=== PATIENT | male | born 1960 | race African-American/Black ===

== ENCOUNTER 2017-11-19 05:38 | Emergency (ER) | payer OTHER ==
[~2017-11-19] VITALS: Ht 185.4 cm; Wt 103.0 kg
[~2017-11-19 05:38] MED LIST: QUET200T PO; RISP2 PO; TRAZ-212 PO; VICODIN; [UNRECOGNIZED DRUG - OTHER]
[2017-11-19] MEDS ORDERED: SODIUM CHLORIDE 0.9% 1,000 ML IV ONE (07:02)
[2017-11-19] MEDS ORDERED: TETANUS, DIPHTHERIA, PERTUSSIS VAC/PF 0.5ML (>7YR OLD) IM ONE (07:15)
[2017-11-19 07:27] LABS: BASOPHILS % 0.3 % (0.0-2.0); EOSINOPHILS % 0.1 % (0.0-5.0); HEMATOCRIT. 48.4 % (42.0-52.0); HEMOGLOBIN. 16.3 g/dL (14.0-18.0); LYMPHOCYTES % 32.1 % (20.0-50.0); MEAN CORPUSCULAR HEMOGLOBIN 28.6 pg (28.0-32.0); MEAN PLATELET VOLUME 9.9 fl (7.4-10.4); MONOCYTES % 6.5 % (2.0-8.0); PLATELET 107 x1000/uL (130-400); RED CELL DISTRIBUTION WIDTH 16.6 % (11.6-14.6)
[2017-11-19 07:31] LABS: CHLORIDE 96 mEq/L (98-107)
[2017-11-19 07:35] LABS: ETHANOL BLOOD < 10 mg/dL
[2017-11-19 09:37] LABS: CLARITY URINE CLEAR (CLEAR); COLOR URINE DARK YELLOW (YELLOW); KETONES URINE 1+ (NEGATIVE); LEUKOCYTE ESTERASE URINE NEGATIVE (NEGATIVE); NITRITE URINE NEGATIVE (NEGATIVE); OCCULT BLOOD URINE 1+ (NEGATIVE); PROTEIN URINE 2+ (NEGATIVE)
[2017-11-19 10:05] LABS: *AMPHETAMINES SCREEN URINE NEGATIVE (NEGATIVE); CANNABINOID URINE SCREEN PRESUMTIVE POSITIVE (NEGATIVE); OPIATES URINE SCREEN NEGATIVE (NEGATIVE); PHENCYCLIDINE URINE SCREEN NEGATIVE (NEGATIVE)
[2017-11-19 10:06] LABS: *BARBITURATES SCREEN URINE NEGATIVE (NEGATIVE)
[2017-11-19 10:08] LABS: *BENZODIAZEPINES SCREEN URINE NEGATIVE (NEGATIVE)
[2017-11-19 10:10] LABS: METHADONE URINE SCREEN NEGATIVE (NEGATIVE)
[2017-11-19 10:12] LABS: *COCAINE SCREEN URINE NEGATIVE (NEGATIVE)
[2017-11-19 10:46] VITALS: BP 136/93
== END 2017-11-19 10:48 | disposition home or self-care (01) ==
LOC: ER 05:38
DX: S00.212A Abrasion of left eyelid and periocular area, initial encounter (principal); R41.82 Altered mental status, unspecified; F12.10 Cannabis abuse, uncomplicated; G93.40 Encephalopathy, unspecified; F17.200 Nicotine dependence, unspecified, uncomplicated; F10.20 Alcohol dependence, uncomplicated; X58.XXXA Exposure to other specified factors, initial encounter; Y93.89 Activity, other specified; Y92.89 Other specified places as the place of occurrence of the external cause; Y99.8 Other external cause status; Z88.6 Allergy status to analgesic agent; Y90.0 Blood alcohol level of less than 20 mg/100 ml
CPT/HCPCS: 36415; 70450; 71045; 80053; 80305; 80307; 80329; 81003; 82962; 83735; 84484; 85025; 90471; 90715; 93005; 96360; 96361; 99285; G0482; J7030; Z7610

== ENCOUNTER 2017-12-05 13:20 | Inpatient (IN) | payer MEDICAID, OTHER ==
[~2017-12-05] VITALS: Ht 185.4 cm; Wt 103.0 kg
[2017-12-05 15:26] LABS: HEMATOCRIT. 43.2 % (42.0-52.0); HEMOGLOBIN. 14.6 g/dL (14.0-18.0); MEAN CORPUSCULAR VOLUME 85.8 fL (80.0-94.0); MEAN PLATELET VOLUME 8.8 fl (7.4-10.4); PLATELET 183 x1000/uL (130-400); RED BLOOD CELL COUNT 5.03 mill/uL (4.7-6.1); RED CELL DISTRIBUTION WIDTH 17.1 % (11.6-14.6)
[2017-12-05 15:29] LABS: CHLORIDE 92 mEq/L (98-107)
[2017-12-05] MEDS ORDERED: HYDRALAZINE 20MG/ML VIAL IV ONE (15:45)
[2017-12-05 16:12] LABS: PLATELET ESTIMATE NORMAL
[2017-12-05 18:22] VITALS: BP 164/96
[2017-12-05] MEDS ORDERED: IPRATROPIUM/ALBUTEROL 0.5-3(2.5)MG/3ML NEB INH PRN (18:30)
[2017-12-05] MEDS ORDERED: CLONIDINE 0.1MG TABLET PO PRN (18:30)
[2017-12-05] MEDS ORDERED: MAGNESIUM/ALUMINUM HYDROXIDE/SIMETHICONE 30ML UDC PO PRN (18:30)
[2017-12-05] MEDS ORDERED: ACETAMINOPHEN 650MG SUPP PR PRN (18:30)
[2017-12-05] MEDS ORDERED: ONDANSETRON HCL 4MG/2ML INJ IV PRN (18:30)
[2017-12-05 18:41] VITALS: BP 164/96
[2017-12-05 20:00] VITALS: BP 148/98
[2017-12-05] MEDS ORDERED: CHLORDIAZEPOXIDE 25MG CAPSULE PO PRN (20:15)
[2017-12-05] MEDS ORDERED: SODIUM CHLORIDE 0.9% 250 ML IV ONE (20:15)
[2017-12-05 20:17] LABS: CLARITY URINE CLEAR (CLEAR); COLOR URINE YELLOW (YELLOW); KETONES URINE NEGATIVE (NEGATIVE); LEUKOCYTE ESTERASE URINE NEGATIVE (NEGATIVE); NITRITE URINE NEGATIVE (NEGATIVE); OCCULT BLOOD URINE NEGATIVE (NEGATIVE); PH URINE 6.5 (4.5-8.0); PROTEIN URINE NEGATIVE (NEGATIVE); SPECIFIC GRAVITY URINE 1.004 (1.005-1.030)
[2017-12-05 20:29] LABS: *AMPHETAMINES SCREEN URINE NEGATIVE (NEGATIVE); *BARBITURATES SCREEN URINE NEGATIVE (NEGATIVE); *BENZODIAZEPINES SCREEN URINE NEGATIVE (NEGATIVE); *COCAINE SCREEN URINE NEGATIVE (NEGATIVE); CANNABINOID URINE SCREEN NEGATIVE (NEGATIVE); METHADONE URINE SCREEN NEGATIVE (NEGATIVE); OPIATES URINE SCREEN NEGATIVE (NEGATIVE); PHENCYCLIDINE URINE SCREEN NEGATIVE (NEGATIVE)
[2017-12-05] MEDS ORDERED: LORAZEPAM 2MG/ML CPJ IV PRN (20:30)
[2017-12-05] MEDS ORDERED: NA PHOS,M-B/NA PHOS,DI-BA ENEMA 118ML PR PRN (21:00)
[2017-12-05] MEDS: PANTOPRAZOLE SODIUM 40 MG/VIAL IV SCH (21:00)
[2017-12-05] MEDS: MVI, ADULT NO.1 10 ML, THIAMINE HCL 100 MG, FOLIC ACID 1 MG in SODIUM CHLORIDE 0.9% 1,0... IV SCH ×4 (21:00)
[2017-12-05] MEDS: SUCRALFATE 1 G/10 ML UDC PO SCH (21:00)
[2017-12-05] MEDS: NICOTINE 14MG PATCH TD SCH (21:27)
[2017-12-05] MEDS: METOPROLOL TARTRATE 25MG TABLET PO SCH (21:28)
[2017-12-05 22:00] VITALS: BP 134/88
[2017-12-05] MEDS: HYDROCODONE/ACETAMINOPHEN 5/325MG TABLET PO PRN (22:05)
[2017-12-05] MEDS: DIPHENHYDRAMINE 50MG/ML VIAL IV PRN (22:06)
[2017-12-06] VITALS (8 sets, daily range): BP systolic 125–143; BP diastolic 76–97
[2017-12-06 01:00] LABS: D-DIMER 0.56 mg/L FEU (<0.50); INR 1.2
[2017-12-06 01:03] LABS: AMMONIA 56 uMol/L (<32)
[2017-12-06 01:06] LABS: ETHANOL BLOOD < 10 mg/dL
[2017-12-06 01:10] LABS: CREATINE KINASE 363 IU/L (39-308)
[2017-12-06 01:11] LABS: CREATINE KINASE MB FRACTION 3.1 ng/mL (0.5-3.6)
[2017-12-06] MEDS: HYDROCODONE/ACETAMINOPHEN 5/325MG TABLET PO PRN ×4 (03:46→17:57)
[2017-12-06] MEDS: SUCRALFATE 1 G/10 ML UDC PO SCH ×4 (06:36→20:58)
[2017-12-06 06:59] LABS: HEMATOCRIT. 39.9 % (42.0-52.0); HEMOGLOBIN. 13.3 g/dL (14.0-18.0); MEAN CORPUSCULAR HEMOGLOBIN 28.7 pg (28.0-32.0); MEAN CORPUSCULAR VOLUME 86.2 fL (80.0-94.0); PLATELET 155 x1000/uL (130-400); RED BLOOD CELL COUNT 4.63 mill/uL (4.7-6.1); RED CELL DISTRIBUTION WIDTH 17.1 % (11.6-14.6)
[2017-12-06 07:14] LABS: HEPATITIS B SURFACE ANTIGEN NEGATIVE
[2017-12-06 07:23] LABS: CHLORIDE 98 mEq/L (98-107)
[2017-12-06 07:38] LABS: CREATINE KINASE 286 IU/L (39-308); CREATINE KINASE MB FRACTION 2.5 ng/mL (0.5-3.6); HDL CHOLESTEROL 68 mg/dL (40-59); LDL CHOLESTEROL 76 mg/dL (5-100); T4 FREE 1.17 ng/dL (0.76-1.46)
[2017-12-06 07:42] LABS: HEPATITIS B CORE AB IGM NEGATIVE
[2017-12-06 07:44] LABS: HEPATITIS A AB IGM NEGATIVE (NEGATIVE)
[2017-12-06] MEDS: ASPIRIN 81MG EC TABLET PO SCH (09:00)
[2017-12-06] MEDS: PANTOPRAZOLE SODIUM 40 MG/VIAL IV SCH (09:00)
[2017-12-06] MEDS: NICOTINE 14MG PATCH TD SCH (09:00)
[2017-12-06] MEDS: METOPROLOL TARTRATE 25MG TABLET PO SCH ×2 (09:00→21:00)
[2017-12-06] MEDS ORDERED: AMLODIPINE 5MG TABLET PO SCH (12:45)
[2017-12-06] MEDS ORDERED: REGADENOSON 0.4 MG/5 ML IV SCH (12:45)
[2017-12-06 12:56] LABS: BG BASE EXCESS -0.6 mmol/L (-2.0-2.0); BG CARBOXYHEMOGLOBIN 1.2 % (0.5-1.5); BG DEOXYHEMOGLOBIN 5.5 % (0.0-5.0); BG HCO3 ACT 23.1 mmol/L (22.0-26.0); BG METHEMOGLOBIN 0.3 % (0.0-1.5); BG OXYGEN SATURATION 94.4 % (92.0-98.5); BG PCO2 35.4 mmHg (35.0-45.0); BG PH 7.432 (7.350-7.450); BG PO2 72.1 mmHg (75.0-100.0); BG SAMPLE SITE RIGHT RADIAL; BG TOTAL HEMOGLOBIN 14.7 g/dL (12.0-18.0); BG VENT MODE ROOM AIR
[2017-12-06 14:41] LABS: PLATELET ESTIMATE NORMAL
[2017-12-06] MEDS ORDERED: IOHEXOL-350 100 ML BOTTLE ONE (16:10)
[2017-12-06] MEDS: NITROGLYCERIN OINT 1GM/INCH UDPKT TD SCH ×2 (17:56→21:25)
[2017-12-06] MEDS ORDERED: LACTULOSE 20G/30ML UDC PO PRN (20:00)
[2017-12-06] MEDS: MVI, ADULT NO.1 10 ML, THIAMINE HCL 100 MG, FOLIC ACID 1 MG in SODIUM CHLORIDE 0.9% 1,0... IV SCH ×4 (20:58)
[2017-12-06] MEDS: AMLODIPINE 5MG TABLET PO SCH (20:59)
[2017-12-06] MEDS: DIPHENHYDRAMINE 50MG/ML VIAL IV PRN (21:24)
[2017-12-06] MEDS: ACETAMINOPHEN 325MG TABLET PO PRN (21:46)
[2017-12-07 02:00] VITALS: BP 128/88
[2017-12-07 04:00] VITALS: BP 128/91
[2017-12-07] MEDS: NITROGLYCERIN OINT 1GM/INCH UDPKT TD SCH ×3 (05:24→20:45)
[2017-12-07 06:00] VITALS: BP 126/88
[2017-12-07 07:16] LABS: BASOPHILS % 0.6 % (0.0-2.0); EOSINOPHILS % 1.2 % (0.0-5.0); HEMATOCRIT. 41.2 % (42.0-52.0); HEMOGLOBIN. 13.8 g/dL (14.0-18.0); LYMPHOCYTES % 51.2 % (20.0-50.0); MEAN CORPUSCULAR HEMOGLOBIN 28.9 pg (28.0-32.0); MEAN CORPUSCULAR VOLUME 86.4 fL (80.0-94.0); MONOCYTES % 13.3 % (2.0-8.0); NEUTROPHILS % 33.7 % (40.0-76.0); PLATELET 150 x1000/uL (130-400); RED BLOOD CELL COUNT 4.76 mill/uL (4.7-6.1)
[2017-12-07 07:54] LABS: CHLORIDE 100 mEq/L (98-107)
[2017-12-07 08:00] VITALS: BP 131/88
[2017-12-07 08:27] LABS: AMMONIA 37 uMol/L (<32)
[2017-12-07] MEDS: NICOTINE 14MG PATCH TD SCH (08:34)
[2017-12-07] MEDS ORDERED: REGADENOSON 0.4 MG/5 ML IV ONE (09:16)
[2017-12-07] MEDS: FAMOTIDINE 20MG/2ML VIAL IV SCH ×2 (10:20→20:40)
[2017-12-07] MEDS: HYDROCODONE/ACETAMINOPHEN 5/325MG TABLET PO PRN ×3 (10:21→23:55)
[2017-12-07] MEDS: METOPROLOL TARTRATE 25MG TABLET PO SCH (10:23)
[2017-12-07] MEDS: AMLODIPINE 5MG TABLET PO SCH ×2 (10:24→20:40)
[2017-12-07] MEDS: SUCRALFATE 1 G/10 ML UDC PO SCH ×4 (10:24→20:45)
[2017-12-07] MEDS: ASPIRIN 81MG EC TABLET PO SCH (10:24)
[2017-12-07 12:00] VITALS: BP 130/89
[2017-12-07] MEDS ORDERED: AZITHROMYCIN 500 MG TABLET PO SCH (13:35)
[2017-12-07] MEDS ORDERED: FUROSEMIDE 40MG/4ML VIAL IVP NR ×2 (13:45)
[2017-12-07 16:00] VITALS: BP 111/80
[2017-12-07] MEDS: FUROSEMIDE 40MG/4ML VIAL IVP SCH (19:09)
[2017-12-07] MEDS: ZOLPIDEM TARTRATE 5MG TABLET PO PRN (20:40)
[2017-12-07] MEDS: CARVEDILOL 6.25 MG TABLET PO SCH (20:41)
[2017-12-07] MEDS ORDERED: CARVEDILOL 3.125 MG TABLET PO SCH (21:00)
[2017-12-07] MEDS ORDERED: LEVOFLOXACIN 500MG TABLET PO SCH (21:00)
[2017-12-07] MEDS ORDERED: FUROSEMIDE 40MG TABLET PO SCH (21:00)
[2017-12-08] MEDS: HYDROCODONE/ACETAMINOPHEN 5/325MG TABLET PO PRN ×3 (06:15→21:24)
[2017-12-08] MEDS: SUCRALFATE 1 G/10 ML UDC PO SCH ×4 (06:21→21:23)
[2017-12-08] MEDS: NITROGLYCERIN OINT 1GM/INCH UDPKT TD SCH ×3 (06:21→21:23)
[2017-12-08] MEDS: FUROSEMIDE 40MG/4ML VIAL IVP SCH ×2 (06:21→17:10)
[2017-12-08 07:32] LABS: BASOPHILS % 0.4 % (0.0-2.0); EOSINOPHILS % 1.8 % (0.0-5.0); HEMATOCRIT. 42.7 % (42.0-52.0); HEMOGLOBIN. 14.1 g/dL (14.0-18.0); LYMPHOCYTES % 45.9 % (20.0-50.0); MEAN CORPUSCULAR HEMOGLOBIN 28.4 pg (28.0-32.0); MEAN CORPUSCULAR VOLUME 86.1 fL (80.0-94.0); MONOCYTES % 12.8 % (2.0-8.0); NEUTROPHILS % 39.1 % (40.0-76.0); PLATELET 159 x1000/uL (130-400); RED BLOOD CELL COUNT 4.95 mill/uL (4.7-6.1); RED CELL DISTRIBUTION WIDTH 16.7 % (11.6-14.6)
[2017-12-08 07:52] LABS: CHLORIDE 94 mEq/L (98-107)
[2017-12-08] MEDS: ACETAMINOPHEN 325MG TABLET PO PRN (09:33)
[2017-12-08] MEDS: AMLODIPINE 5MG TABLET PO SCH ×2 (09:43→21:24)
[2017-12-08] MEDS: ASPIRIN 81MG EC TABLET PO SCH (09:43)
[2017-12-08] MEDS: LISINOPRIL 10MG TABLET PO SCH (09:44)
[2017-12-08] MEDS: FOLIC ACID/VITAMIN B COMP W-C TABLET PO SCH (09:44)
[2017-12-08] MEDS: CARVEDILOL 6.25 MG TABLET PO SCH ×2 (09:44→21:25)
[2017-12-08] MEDS: FAMOTIDINE 20MG/2ML VIAL IV SCH ×2 (10:01→21:23)
[2017-12-08] MEDS: MULTIVITAMINS,THER W-MINERALS TABLET PO SCH (12:11)
[2017-12-08] MEDS: THIAMINE HCL 100MG TABLET PO SCH (12:11)
[2017-12-08] MEDS: NICOTINE 14MG PATCH TD SCH (12:36)
[2017-12-08 16:00] VITALS: BP 88/60
[2017-12-08] MEDS: ZOLPIDEM TARTRATE 5MG TABLET PO PRN (21:24)
[2017-12-09] VITALS (7 sets, daily range): BP systolic 85–129; BP diastolic 51–110
[2017-12-09] MEDS: FUROSEMIDE 40MG/4ML VIAL IVP SCH ×2 (06:19→18:17)
[2017-12-09] MEDS: NITROGLYCERIN OINT 1GM/INCH UDPKT TD SCH ×3 (06:19→22:00)
[2017-12-09] MEDS: SUCRALFATE 1 G/10 ML UDC PO SCH ×4 (06:19→22:12)
[2017-12-09] MEDS ORDERED: NITROGLYCERIN SPRAY/4.9GM CAN TL PRN (07:30)
[2017-12-09 08:09] LABS: BASOPHILS % 0.5 % (0.0-2.0); EOSINOPHILS % 1.9 % (0.0-5.0); HEMATOCRIT. 39.3 % (42.0-52.0); HEMOGLOBIN. 13.2 g/dL (14.0-18.0); LYMPHOCYTES % 44.6 % (20.0-50.0); MEAN CORPUSCULAR VOLUME 86.1 fL (80.0-94.0); MEAN PLATELET VOLUME 9.1 fl (7.4-10.4); MONOCYTES % 10.2 % (2.0-8.0); NEUTROPHILS % 42.8 % (40.0-76.0); PLATELET 140 x1000/uL (130-400); RED BLOOD CELL COUNT 4.57 mill/uL (4.7-6.1); RED CELL DISTRIBUTION WIDTH 16.6 % (11.6-14.6)
[2017-12-09] MEDS ORDERED: METOPROLOL TARTRATE 5MG/5ML VIAL IV ONE ×2 (08:13→09:15)
[2017-12-09] MEDS: AMLODIPINE 5MG TABLET PO SCH ×2 (09:00→21:00)
[2017-12-09] MEDS: CARVEDILOL 6.25 MG TABLET PO SCH ×2 (09:00→21:00)
[2017-12-09] MEDS: FOLIC ACID/VITAMIN B COMP W-C TABLET PO SCH (09:00)
[2017-12-09] MEDS ORDERED: IOHEXOL-350 100 ML BOTTLE ONE (09:24)
[2017-12-09] MEDS: ASPIRIN 81MG EC TABLET PO SCH (09:29)
[2017-12-09] MEDS: MULTIVITAMINS,THER W-MINERALS TABLET PO SCH (09:30)
[2017-12-09] MEDS: LISINOPRIL 10MG TABLET PO SCH (09:30)
[2017-12-09] MEDS: THIAMINE HCL 100MG TABLET PO SCH (09:30)
[2017-12-09] MEDS: NICOTINE 14MG PATCH TD SCH (09:43)
[2017-12-09] MEDS: FAMOTIDINE 20MG/2ML VIAL IV SCH ×2 (09:44→22:12)
[2017-12-09] MEDS: HYDROCODONE/ACETAMINOPHEN 5/325MG TABLET PO PRN ×2 (09:59→18:24)
[2017-12-09 10:11] LABS: CHLORIDE 95 mEq/L (98-107)
[2017-12-09] MEDS: ZOLPIDEM TARTRATE 5MG TABLET PO PRN (22:12)
[2017-12-09] MEDS: DIPHENHYDRAMINE 50MG/ML VIAL IV PRN (22:33)
[2017-12-10] VITALS: BP 95/65
[2017-12-10 04:00] VITALS: BP 101/66
[2017-12-10] MEDS: NITROGLYCERIN OINT 1GM/INCH UDPKT TD SCH ×2 (06:00→14:57)
[2017-12-10 08:00] VITALS: BP 106/65
[2017-12-10] MEDS: AMLODIPINE 5MG TABLET PO SCH (09:00)
[2017-12-10] MEDS: CARVEDILOL 6.25 MG TABLET PO SCH (09:00)
[2017-12-10] MEDS: LISINOPRIL 10MG TABLET PO SCH (09:00)
[2017-12-10] MEDS: MULTIVITAMINS,THER W-MINERALS TABLET PO SCH (09:07)
[2017-12-10] MEDS: ASPIRIN 81MG EC TABLET PO SCH (09:07)
[2017-12-10] MEDS: THIAMINE HCL 100MG TABLET PO SCH (09:07)
[2017-12-10] MEDS: FOLIC ACID/VITAMIN B COMP W-C TABLET PO SCH (09:07)
[2017-12-10] MEDS: SUCRALFATE 1 G/10 ML UDC PO SCH ×2 (09:07→14:57)
[2017-12-10] MEDS: NICOTINE 14MG PATCH TD SCH (09:08)
[2017-12-10] MEDS: FUROSEMIDE 40MG/4ML VIAL IVP SCH (09:42)
[2017-12-10] MEDS: FAMOTIDINE 20MG/2ML VIAL IV SCH (09:43)
[2017-12-10 12:00] VITALS: BP 107/62
== END 2017-12-10 16:43 | disposition home or self-care (01) | DRG 194 ==
LOC: ER 14:44 → 7WST 15:48 → ENRESERV 16:56
PROVIDERS: ADMIT Internal Medicine; ATTEND Internal Medicine
DX: I11.0 Hypertensive heart disease with heart failure (principal); I27.20 Pulmonary hypertension, unspecified; E72.20 Disorder of urea cycle metabolism, unspecified; E86.0 Dehydration; J44.1 Chronic obstructive pulmonary disease with (acute) exacerbation; I42.0 Dilated cardiomyopathy; I50.23 Acute on chronic systolic (congestive) heart failure; M48.02 Spinal stenosis, cervical region; J06.9 Acute upper respiratory infection, unspecified; E78.00 Pure hypercholesterolemia, unspecified; E78.5 Hyperlipidemia, unspecified; R00.0 Tachycardia, unspecified; D72.819 Decreased white blood cell count, unspecified; R20.2 Paresthesia of skin; H26.9 Unspecified cataract; G89.4 Chronic pain syndrome; K29.20 Alcoholic gastritis without bleeding; K80.20 Calculus of gallbladder without cholecystitis without obstruction; B19.20 Unspecified viral hepatitis C without hepatic coma; F10.20 Alcohol dependence, uncomplicated; R07.89 Other chest pain; F17.210 Nicotine dependence, cigarettes, uncomplicated; Z88.6 Allergy status to analgesic agent; Z79.899 Other long term (current) drug therapy; M94.0 Chondrocostal junction syndrome [Tietze]
CPT/HCPCS: 36415; 36600; 71045; 71275; 72141; 73060; 75571; 76700; 78452; 80048; 80061; 80305; 82140; 82375; 82550; 82553; 82805; 82962; 83036; 83880; 84439; 84443; 84484; 85379; 86705; 86709; 86803; 87340; 93005; 93017; 93306; 93970; 97162; 99285; A9500; C9113; G0482; J1200; J1940; J2060; J2785; J3411; J3490; J7030; Q9967

== ENCOUNTER 2018-04-28 13:43 | Emergency (ER) | payer OTHER ==
[~2018-04-28] VITALS: Ht 177.8 cm; Wt 111.0 kg
[2018-04-28] MEDS ORDERED: OXYCODONE HCL/ACETAMINOPHEN 5/325MG TABLET PO ONE (18:45)
[2018-04-28 19:28] LABS: CHLORIDE 106 mEq/L (98-107)
[2018-04-28 19:32] LABS: BASOPHILS % 0.4 % (0.0-2.0); EOSINOPHILS % 2.5 % (0.0-5.0); HEMATOCRIT. 35.6 % (42.0-52.0); HEMOGLOBIN. 11.5 g/dL (14.0-18.0); LYMPHOCYTES % 55.9 % (20.0-50.0); MEAN CORPUSCULAR HEMOGLOBIN 26.3 pg (28.0-32.0); MEAN CORPUSCULAR VOLUME 81.5 fL (80.0-94.0); MEAN PLATELET VOLUME 7.9 fl (7.4-10.4); MONOCYTES % 14.8 % (2.0-8.0); NEUTROPHILS % 26.4 % (40.0-76.0); PLATELET 176 x1000/uL (130-400); RED BLOOD CELL COUNT 4.37 mill/uL (4.7-6.1); RED CELL DISTRIBUTION WIDTH 15.7 % (11.6-14.6)
[2018-04-28 20:54] VITALS: BP 178/111
== END 2018-04-28 20:58 | disposition home or self-care (01) ==
LOC: ER 14:17
DX: R53.1 Weakness (principal); E78.00 Pure hypercholesterolemia, unspecified; I10 Essential (primary) hypertension; F10.20 Alcohol dependence, uncomplicated; Y90.9 Presence of alcohol in blood, level not specified; Z87.01 Personal history of pneumonia (recurrent); Z88.1 Allergy status to other antibiotic agents; Z88.6 Allergy status to analgesic agent
CPT/HCPCS: 36415; 71045; 83880; 84484; 93005; 99284

== ENCOUNTER 2019-07-23 16:27 | Emergency (ER) | payer OTHER ==
[~2019-07-23] VITALS: Ht 190.5 cm; Wt 98.0 kg
[~2019-07-23 16:27] MED LIST changes: -TRAZ-212 PO; +TRAZ-251 PO
[2019-07-23] MEDS ORDERED: SODIUM CHLORIDE 0.9% 1,000 ML IV ONE (16:56)
[2019-07-23 17:23] LABS: BASOPHILS % 0.5 % (0.0-2.0); EOSINOPHILS % 0.3 % (0.0-5.0); HEMATOCRIT. 42.5 % (42.0-52.0); HEMOGLOBIN. 14.2 g/dL (14.0-18.0); LYMPHOCYTES % 40.8 % (20.0-50.0); MEAN CORPUSCULAR HEMOGLOBIN 27.2 pg (28.0-32.0); MEAN CORPUSCULAR VOLUME 81.5 fL (80.0-94.0); MEAN PLATELET VOLUME 9.6 fl (7.4-10.4); MONOCYTES % 12.6 % (2.0-8.0); NEUTROPHILS % 45.8 % (40.0-76.0); PLATELET 88 x1000/uL (130-400); RED BLOOD CELL COUNT 5.22 mill/uL (4.7-6.1); RED CELL DISTRIBUTION WIDTH 16.6 % (11.6-14.6)
[2019-07-23 17:29] LABS: CHLORIDE 107 mEq/L (98-107)
[2019-07-23 17:30] LABS: INR 1.1; PROTHROMBIN TIME 11.9 sec (9.6-11.0)
[2019-07-23 17:34] LABS: ETHANOL BLOOD < 10 mg/dL
[2019-07-23] MEDS ORDERED: LEVETIRACETAM 500MG PREMIX 100 ML IV ONE (19:30)
[2019-07-23] MEDS ORDERED: LEVETIRACETAM 500MG PREMIX 100 ML IV SCH (22:30)
[2019-07-23] MEDS ORDERED: CLONIDINE 0.1MG TABLET PO SCH (22:30)
[2019-07-23 23:04] VITALS: BP 151/103
== END 2019-07-23 23:42 | disposition short-term general hospital (02) ==
LOC: ER 16:27
DX: G40.909 Epilepsy, unspecified, not intractable, without status epilepticus (principal); R00.0 Tachycardia, unspecified; I11.9 Hypertensive heart disease without heart failure; Z88.3 Allergy status to other anti-infective agents; Z88.6 Allergy status to analgesic agent
CPT/HCPCS: 36415; 70450; 71045; 80053; 80320; 84484; 85025; 85610; 93005; 96361; 96365; 99285; J1953; J7030; G0480

== ENCOUNTER 2020-10-08 21:04 | Emergency (ER) | payer OTHER ==
[~2020-10-08] VITALS: Ht 177.8 cm; Wt 81.0 kg
[2020-10-08] MEDS ORDERED: SODIUM CHLORIDE 0.9% 1000ML BAG (SEPSIS BOLUS) IV ONE (21:30)
[2020-10-08] MEDS ORDERED: ADENOSINE 3 MG/ML 2ML VIAL IV ONE ×2 (21:45)
[2020-10-08] MEDS ORDERED: DILTIAZEM HCL 120MG CAPSULE CD 24HR PO ONE ×2 (22:00→22:30)
[2020-10-08 22:24] LABS: BASOPHILS % 0.3 % (0.0-2.0); EOSINOPHILS % 0.6 % (0.0-5.0); HEMATOCRIT. 43.1 % (42.0-52.0); HEMOGLOBIN. 14.6 g/dL (14.0-18.0); LYMPHOCYTES % 37.6 % (20.0-50.0); MEAN CORPUSCULAR VOLUME 88.6 fL (80.0-94.0); MEAN PLATELET VOLUME 9.5 fl (7.4-10.4); MONOCYTES % 11.4 % (2.0-8.0); NEUTROPHILS % 50.1 % (40.0-76.0); PLATELET 124 x1000/uL (130-400); RED BLOOD CELL COUNT 4.87 mill/uL (4.7-6.1); RED CELL DISTRIBUTION WIDTH 13.6 % (11.6-14.6)
[2020-10-08 22:26] LABS: CHLORIDE 102 mEq/L (98-107)
[2020-10-08 22:32] LABS: C REACTIVE PROTEIN QUANT 1.1 mg/L (0.0-3.0); ETHANOL BLOOD < 10 mg/dL
[2020-10-08 22:33] LABS: INR 1.1; PROTHROMBIN TIME 12.2 sec (9.6-11.0)
[2020-10-08 22:35] LABS: CREATINE KINASE 321 IU/L (39-308)
[2020-10-08] MEDS ORDERED: NITROGLYCERIN OINT 1GM/INCH UDPKT TD SCH (23:15)
[2020-10-08] MEDS ORDERED: FUROSEMIDE 20MG/2ML VIAL IVP SCH (23:15)
[2020-10-09 04:36] VITALS: BP 142/76
== END 2020-10-09 04:38 | disposition short-term general hospital (02) ==
LOC: ER 21:04 → CANBEDREQ 10-09 05:46
DX: G40.909 Epilepsy, unspecified, not intractable, without status epilepticus (principal); I47.1 Supraventricular tachycardia; I11.0 Hypertensive heart disease with heart failure; I50.9 Heart failure, unspecified; E87.2 Acidosis; Z59.0 Homelessness; Z88.3 Allergy status to other anti-infective agents
CPT/HCPCS: 36415; 70450; 71045; 80053; 80320; 82550; 82728; 83605; 83615; 83690; 83880; 84145; 84484; 85025; 85384; 85610; 86140; 86850; 86900; 86901; 87040; 87077; 87426; 93005; 96361; 96374; 96375; 99291; J0153; J1940; J7030; G0480

== ENCOUNTER 2020-11-01 16:53 | Emergency (ER) | payer OTHER ==
[~2020-11-01] VITALS: Ht 185.4 cm; Wt 90.0 kg
[2020-11-01 17:52] LABS: HEMATOCRIT. 45.5 % (42.0-52.0); HEMOGLOBIN. 15.4 g/dL (14.0-18.0); MEAN CORPUSCULAR HEMOGLOBIN 30.2 pg (28.0-32.0); MEAN CORPUSCULAR VOLUME 89.2 fL (80.0-94.0); PLATELET 95 x1000/uL (130-400); RED CELL DISTRIBUTION WIDTH 13.3 % (11.6-14.6)
[2020-11-01 17:59] LABS: CHLORIDE 106 mEq/L (98-107)
[2020-11-01 18:23] LABS: PLATELET ESTIMATE DECREASED
[2020-11-01 20:10] VITALS: BP 125/89
== END 2020-11-01 20:10 | disposition home or self-care (01) ==
LOC: ER 16:53
DX: R42 Dizziness and giddiness (principal); I10 Essential (primary) hypertension; R56.9 Unspecified convulsions; Z88.3 Allergy status to other anti-infective agents
CPT/HCPCS: 36415; 80048; 84484; 85025; 93005; 99285